=== PATIENT | female | born 1985 | race Caucasian/White ===

== ENCOUNTER 2020-10-02 10:20 | Outpatient (REF) | payer OTHER, SELFPAY ==
--- NOTE | 2020-10-02 10:33 | US_ITS ---
EXAMINATION: US ABDOMEN COMPLETE CLINICAL INFORMATION: Abdomen enlargement. COMPARISON: None TECHNIQUE: Real-time imaging of the abdominal viscera. FINDINGS: PANCREAS: Normal. ABDOMINAL AORTA: The proximal, mid, and distal segments are normal in caliber. INFERIOR VENA CAVA: Visualized portions are normal. LIVER: Normal. The liver is normal in size. The liver contour is normal. Parenchymal echogenicity is normal. No focal hepatic lesion. There is no intrahepatic biliary duct dilatation seen. GALLBLADDER: Normal. The gallbladder is physiologically distended without evidence of stones, sludge, polyps, wall thickening or pericholecystic fluid. COMMON BILE DUCT: Normal in caliber measuring 0.2 cm in diameter. RIGHT KIDNEY: Normal. No hydronephrosis. No renal calculi or focal parenchymal lesions. The kidney measures 10.4 cm in maximum dimension. LEFT KIDNEY: Normal. No hydronephrosis. No renal calculi or focal parenchymal lesions. The kidney measures 10.8 cm in maximum dimension. SPLEEN: Normal. The spleen measures 10.2 cm in maximum dimension. FREE FLUID: None. There is a large complex cyst seen in the right abdomen and pelvis. This measures approximately 26 x 21 20 cm and has low-level internal echoes. There is a probable fibroid in the uterus measuring 4.5 x 4.8 x 5.4 cm. No ascites is appreciated. US/US abdomen complete IMPRESSION: Large 26 x 21 28 cm complex cyst with low-level internal echoes in the right side of the abdomen and pelvis. Probable uterine fibroid. Otherwise unremarkable abdominal ultrasound.
== END 2020-10-02 10:21 | disposition home or self-care (01) ==
LOC: HO.HMGCX 10:20
PROVIDERS: PCP Internal Medicine; Visit Provider Nurse Practitioner Family
DX: R19.8 Other specified symptoms and signs involving the digestive system and abdomen (principal); R10.9 Unspecified abdominal pain
CPT/HCPCS: 76700